=== PATIENT | male | born 2000 | race African-American/Black ===

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

== ENCOUNTER 2020-06-17 19:00 | Emergency (ER) | payer SELFPAY ==
[~2020-06-17] VITALS: Ht 170.2 cm; Wt 54.4 kg
[2020-06-17] MEDS ORDERED: NEOMY/BACITR/POLYMYXIN OINT PACKET. TP ONE (19:15)
[2020-06-17] MEDS ORDERED: GENTAMICIN PER PHARMACY. MC PRN (19:15)
[2020-06-17] MEDS ORDERED: FLUORESCEIN OPHTH TEST STRIP. OU ONE (19:15)
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
[2020-06-17] MEDS ORDERED: GENTAMICIN SULFATE 300 MG in IV DEXTROSE 5% 100ML 100 ML IV ONE (19:45)
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
[2020-06-17] MEDS ORDERED: TETRACAINE 0.5% OPHTH SOLUTION 4ML BOTTLE. ONE (20:04)
[2020-06-17] MEDS ORDERED: HYDROmorphone 2 MG/ML VIAL IVP ONE (20:30)
[2020-06-17] MEDS ORDERED: CIPROFLOXACIN 0.3% OPHTH SOLUTION 5ML BOTTLE. OD SCH (21:00)
[2020-06-17 21:06] VITALS: BP 109/56
== END 2020-06-17 21:55 | disposition short-term general hospital (02) ==
LOC: ER 19:00 → EEVIPCON 19:00 → ER 21:55
DX: S62.637B Displaced fracture of distal phalanx of left little finger, initial encounter for open fracture (principal); H53.141 Visual discomfort, right eye; J45.909 Unspecified asthma, uncomplicated; Z90.89 Acquired absence of other organs; Z98.890 Other specified postprocedural states; W34.09XA Accidental discharge from other specified firearms, initial encounter; Y93.89 Activity, other specified; Y92.89 Other specified places as the place of occurrence of the external cause; Y99.8 Other external cause status
CPT/HCPCS: 73130; 73140; 96365; 96368; 96375; 99285; J0690; J1170; J1580; J7060